=== PATIENT | female | born 1955 | race Caucasian/White ===

== ENCOUNTER → 2016-07-07 | Outpatient (CLI) | payer OTHER ==
[~2016-07-07] MED LIST: FISH OIL 1,001000 M2 PO; METFORMIN HCL500 MG PO; PERCOCET 5-3251 EACH PO; PRAVACHOL20 MG PO; TAMSULOSIN HCL0.4 MG PO; ZOFRAN ODT4 MG PO
== END ==
LOC: RAD 01:23
DX: Z12.31 Encounter for screening mammogram for malignant neoplasm of breast (principal)

== ENCOUNTER → 2016-12-06 | Outpatient (CLI) | payer OTHER | LOC: ULTRA 07:14 | DX: R10.2 Pelvic and perineal pain (principal) ==

== ENCOUNTER → 2017-06-15 | Outpatient (CLI) | payer OTHER ==
[~2017-06-15] VITALS: Ht 162.6 cm; Wt 92.1 kg
[~2017-06-15] MED LIST changes: +VENTOLIN HFA 1818 GM INH
--- NOTE | ~2017-06-15 | P ---
[facility] [place] [address] PROCEDURE REPORT Name: ANIA LI Room [facility]: [facility] [id number] Admission: 06/15/17 Attend Phys: Robert Bone Discharge: Date of : 51 Report #: [id number] THIS REPORT FOR: //name// CC: Robert Tapia MD DATE OF SERVICE: 06/15/2017 PROCEDURE PERFORMED: Upper endoscopy with biopsies and esophageal dilation. HISTORY OF PRESENT ILLNESS: The patient is a 62-year-old female with a history of intermittent reflux symptoms, takes Zantac and Tums on a p.r.n. basis. She does report some dysphagia at times. She has had a previous history of H. pylori, which was treated in the past. DESCRIPTION OF PROCEDURE: The risks and benefits of the procedure were explained to the patient, those risks including, but not limited to bleeding, perforation, the risk of sedation. She understood these risks and gave informed consent. Sedation was given using propofol and ketamine per anesthesia. Next, using a standard Olympus upper endoscope, the scope was placed in the patient's mouth and advanced under direct vision through the esophagus, stomach and into the second portion of the duodenum. The larynx was normal in appearance. The upper and mid esophagus was normal. In the distal esophagus at the GE junction, there was evidence of grade A erosive esophagitis. Upon entering the stomach, a small hiatal hernia was noted. Overall, the gastric mucosa was normal. Because of her history of H. pylori, biopsies were obtained to rule out H. pylori. The pylorus was normal and patent. The duodenal bulb, first and second portion were all normal. The scope was then brought back up into the patient's stomach and a Savary guidewire was inserted through the scope leaving the guidewire in place as the scope was then withdrawn. Next, a 48-Danish Savary dilation of the esophagus was performed without difficulty. The wire and dilator were removed. The scope was reintroduced into the patient's stomach. There was no evidence of mucosal tear after dilation. The scope was then withdrawn and the procedure terminated. The patient tolerated the procedure well. IMPRESSION: 1. Grade A erosive esophagitis. 2. Small hiatal hernia. 3. Otherwise, normal upper endoscopy. RECOMMENDATIONS: 1. Await biopsy results. 2. Recommend daily proton pump inhibitor therapy. 3. Observe the patient post dilation. [address] [address] PROCEDURE REPORT Name: ANIA LI Room #: REG DOTNayana Reyes#: [id number] Admission: 06/15/17 Attend Phys: Robert Bone Discharge: Date of : 51 Report #: [id number] Thank you for allowing me to participate in her care. <ELECTRONICALLY SIGNED> By: Robert Rivera MD 06/24/17 0804 [id number] [id number] Robert Rivera, /fausto
--- NOTE | ~2017-06-15 | S ---
[facility] [place] [address] SURGICAL PATH RPT PROCEDURE Name: JEANNA LI Room #: REG IRINA Carpenter.#: [id number] Admission: 06/15/17 Date of : 51 Discharge: Report #: [id number] Path Case #: [id number] PATHOLOGY REPORT COLLECTION DATE: 06/15/2017 RECEIVED DATE: 06/15/2017 SUBMITTING PHYS: Dr. Robert Rivera OTHER PHYS: Dr. Pawel Tapia SPECIMEN(S) RECEIVED: A.Gastric body R/O H pylori B.Transverse colon polyp bx C.Descending colon polyp bx * * * * * * * * * * * * FINAL DIAGNOSIS: A. Gastric mucosa, gastric body rule out H. pylori, endoscopic biopsy: - No significant diagnostic abnormalities present. - Negative for Helicobacter pylori. B. Polyp, transverse colon polyp, endoscopic biopsy: - Minute tubular adenoma. - Negative for high-grade dysplasia. C. Polyp, descending colon polyp, endoscopic biopsy: - Tubular adenoma. - Negative for high-grade dysplasia. COMMENT: Well-controlled Helicobacter pylori immunohistochemical stain performed on block A1-negative. (IUV:mgr; 06/16/2017) PATHOLOGIST: Patti Juares M.D. REPORT ELECTRONICALLY SIGNED BY: Patti Juares M.D. DATE/TIME: 06/16/2017 16:16 * * * * * * * * * * * * GROSS PATHOLOGY: A. The specimen is received in formalin, labeled "Jeanna Li, gastric body rule out H. pylori," and consists of 2 fragments of miner soft tissue measuring 0.6 x 0.3 x 0.1 cm and 0.4 x 0.3 x 0.2 cm. They are entirely submitted in A1. B. Received in formalin labeled "Jeanna Li, transverse colon polyp BX," is a segment of miner soft tissue measuring 0.4 x 0.2 x 0.2 cm in maximum dimension. The specimen is submitted entirely in cassette B1. [address] [address] SURGICAL PATH RPT PROCEDURE Name: JEANNA LI Room #: [facility].#: [id number] Admission: 06/15/17 Date of : 51 Discharge: Report #: [id number] Path Case #: [id number] C. Received in formalin labeled, "Jeanna Li, descending colon polyp BX," are 3 fragments of miner soft tissue measuring between 0.3 x 0.1 x 0.1 cm and 0.4 x 0.3 x 0.1 cm. They are entirely submitted in cassette C1. (SDY; 06/15/2017) CLINICAL HISTORY: Dysphagia, reflux, history H. pylori, history colon polyps Dysphasia, history H. pylori, colon polyps INITIAL CPT CODE(S): A; 73148, 16201 B; 77250 C; 88256 Professional services performed by [facility] at [address] , [place] [address] Technical services performed by [facility] at [address] [place] [address], [address], [place] [address]. [facility] [address] [place] [address] PHONE: [phone] DIRECTOR: Emmanuel Siddiqui M.D. * * * END OF REPORT * * *
--- NOTE | ~2017-06-15 | P ---
[facility] [place] [address] PROCEDURE REPORT Name: ANIA LI Room #: REG [facility] Pauline.#: [id number] Admission: 06/15/17 Attend Phys: Robert Bone Discharge: Date of : 51 Report #: [id number] THIS REPORT FOR: //name// CC: Robert Tapia MD DATE OF SERVICE: 06/15/2017 PROCEDURE PERFORMED: Colonoscopy with biopsies. HISTORY OF PRESENT ILLNESS: The patient is a 62-year-old female with a history of colon polyps 5 years ago, here for routine followup. She reports her bowel movements have been normal. No family history of colon cancer. DESCRIPTION OF PROCEDURE: The risks and benefits of the procedure were explained to the patient, those risks including, but not limited to bleeding, perforation, the risk of sedation. She understood these risks and gave informed consent. Sedation was given using propofol and ketamine per anesthesia. Next, a digital rectal exam was initially performed, which was normal. Next, using a standard Fujinon colonoscope, the scope was placed in the patient's anus and advanced under direct vision to the cecum. The overall prep was excellent. The cecum and ileocecal valve were normal in appearance. Ascending colon was normal. In the transverse colon, a 4 mm sessile polyp was noted and removed with cold forceps, otherwise normal. Descending colon, 3 mm sessile polyp also removed with cold forceps. Sigmoid colon was normal. The rectal mucosa was normal. On retroflexion, small nonbleeding internal hemorrhoids were noted, otherwise normal colonoscopy. The scope was then withdrawn and the procedure terminated. The patient tolerated the procedure well. IMPRESSION: 1. Two small colonic polyps. 2. Small internal hemorrhoids. 3. Otherwise, normal colonoscopy. RECOMMENDATIONS: 1. Await biopsy results. 2. If polyps are hyperplastic, repeat in 10 years; if adenomatous polyps, repeat in 5 years. Thank you for allowing me to participate in her care. <ELECTRONICALLY SIGNED> By: Robert Rivera MD 06/24/17 0804 [id number] [id number] Robert Rivera MD /nt
== END | disposition home or self-care (01) ==
LOC: GI 06:57
DX: Z09 Encounter for follow-up examination after completed treatment for conditions other than malignant neoplasm (principal); D12.3 Benign neoplasm of transverse colon; D12.4 Benign neoplasm of descending colon; K22.10 Ulcer of esophagus without bleeding; K44.9 Diaphragmatic hernia without obstruction or gangrene; K64.8 Other hemorrhoids; R13.19 Other dysphagia; K21.9 Gastro-esophageal reflux disease without esophagitis; Z86.010 Personal history of colon polyps; Z87.19 Personal history of other diseases of the digestive system; Z98.890 Other specified postprocedural states; Z79.899 Other long term (current) drug therapy
CPT/HCPCS: 62110; 62900

== ENCOUNTER → 2017-07-11 | Outpatient (CLI) | payer OTHER | LOC: RAD 01:03 | DX: Z12.31 Encounter for screening mammogram for malignant neoplasm of breast (principal) ==

== ENCOUNTER → 2018-01-30 | Outpatient (CLI) | payer OTHER | LOC: RAD 11:15 | DX: M54.42 Lumbago with sciatica, left side (principal); M25.552 Pain in left hip ==

== ENCOUNTER → 2018-07-10 | Outpatient (CLI) | payer OTHER | LOC: MRI 07:25 | DX: M76.02 Gluteal tendinitis, left hip (principal) ==

== ENCOUNTER → 2018-07-12 | Outpatient (CLI) | payer OTHER | LOC: RAD 03:11 | DX: Z12.31 Encounter for screening mammogram for malignant neoplasm of breast (principal) ==

== ENCOUNTER → 2019-03-06 | Outpatient (CLI) | payer OTHER | LOC: ULTRA 07:03 | DX: E04.1 Nontoxic single thyroid nodule (principal) ==